=== PATIENT | female | born 1940 | race African-American/Black ===

== ENCOUNTER → 2016-05-26 | Day surgery (SDC) | payer MEDICARE, MEDICAID ==
--- NOTE | 2016-05-21 09:39 | Diagnostic Imaging Report ---
Indication: Cough Comparison: None 2 views of the chest obtained. Lungs are clear. Cardiomegaly is present. Aorta is mildly enlarged. Osteophytes involving endplates within the thoracic spine at multiple levels demonstrated. Impression: No acute disease
--- NOTE | 2016-05-24 10:34 | Opthalmology H&P ---
Ophthalmology H&P H&P Chief Complaint: decreased vision in right eye HPI Vision Affects Ability to: read, focus/use eyes together, manage personal affairs HPI Narrative blurry vision Exam Visual Acuity: OD: CF OS: 20/125 Tension: OD: 18 OS: 20 Eye Exam: normal OU: anterior chambers, corneas, external exam, fundus exam, levator function, marginal reflex distance, palpebral fissure-width, findings: lens - OD: ns OS: ns Assessment/Plan Diagnosis: (1) Cataract Treatment Plan: cataract extraction w/ lens implant Goals of Treatment: improvement of vision, enhance quality of life Attestation Attestation The risks and benefits of the surgery as well as alternative procedures were explained to the patient in detail. RADHA STOREY May 24, 2016 10:34
--- NOTE | 2016-05-24 15:23 | Pre-Procedure Note/Attestation ---
Pre-Procedure Note/Attestation Complete Prior to Procedure Planned Procedure: right Procedure Narrative: PHACO WITH IOL Indications for Procedure Pre-Operative Diagnosis: CATARACT Attestation I attest that I discussed the nature of the procedure; its benefits; risks and complications; and alternatives (and the risks and benefits of such alternatives ), prior to the procedure, with the patient (or the patient's legal insurance healthcare representative). I attest that, if there was a reasonable possibility of needing a blood transfusion, the patient (or the patient's legal insurance healthcare representative) was given the [facility] of Health Services standardized written summary, pursuant to the Derian [place] Blood Safety Act ([place] Health and Safety Code # 1645, as amended). I attest that I re-evaluated the patient just prior to the surgery and that there has been no change in the patient's H&P, except as documented below: RADHA STOREY May 24, 2016 15:23
[~2016-05-26] VITALS: Ht 157.5 cm; Wt 70.8 kg
[2016-05-26] VITALS (9 sets, daily range): BP systolic 128–137; BP diastolic 60–73
[~2016-05-26] MED LIST: ALBUTEROL SULF8.5 GM INH; AMLODIPINE BESY10 MG ORAL; Akten 3.5% 1ml Btl RIGHT EYE ONE; BSS 500ml btl ONE; GLIPIZIDE5 MG ORAL; HYDROCHLOROTHIA25 MG ORAL; LOSARTAN POTASS50 MG ORAL; LR 1000ml 1,000 ML IVLG SCH; LR 1000ml ONE; Lidocaine 1% MPF 10mg/ml 5ml ONE; MAPAP500 M2 PO; Maxitrol Opth Oint 3.5gm ONE; NS Irrig 1000ml ONE; PANTOPRAZOLE SO40 MG ORAL; Pred Forte 1% Opth Susp 1ml ONE; Propofol 10mg/ml 20ml IV ONE; Sodium Hyaluronate 14 mg/ml 0.85ml ONE; Sterile Water Irrig 1000ml IRRIG ONE; Tetracaine 0.5% Opth Soln ONE; Tobramycin Op Soln 0.3% ONE; Tobramycin Op Soln 0.3% RIGHT EYE SCH; acetaZOLAMIDE 500mg Inj ONE
[2016-05-26] MEDS: Diclofenac Sod 0.1% Op Soln RIGHT EYE SCH ×3 (07:36→07:55)
[2016-05-26] MEDS: Phenylephrine 10% Opth Soln 5ml RIGHT EYE SCH ×3 (07:36→07:55)
[2016-05-26] MEDS: Cyclopentolate 1% Opth Sol RIGHT EYE SCH ×3 (07:37→07:56)
[2016-05-26] MEDS: Tropicamide 1% Opth Soln RIGHT EYE SCH ×3 (07:37→07:56)
--- NOTE | 2016-05-26 07:45 | Anethesia Preoperative Eval ---
Anesthesia Pre-op PMH/ROS General Date of Evaluation: May 26, 2016 Anesthesiologist: Ajay ASA Score: ASA 3 Mallampati Score Class I : Soft palate, uvula, fauces, pillars visible Class II: Soft palate, uvula, fauces visible Class III: Soft palate, base of uvula visible Class IV: Only hard plate visible Mallampati Classification: Class II Surgeon: Heather Diagnosis: Cataract OD Surgical Procedure: Cataract extract with IOL OD Allergies: Coded Allergies: No Known Allergies (Unverified , 12/08/15) Medications: see eMAR Past Medical History Cardiovascular: Reports: HTN Pulmonary: Reports: COPD Gastrointestinal/Genitourinary: Reports: GERD Endocrine: Reports: DM HEENT: Reports: cataract (R) Anesthesia Pre-op Phys. Exam Physician Exam Neurologic: CN 2-12 intact Cardiovascular: RRR Respiratory: CTA Airway Exam Mallampati Score: Class II ANA MARIA POON M.D. May 26, 2016 07:45
--- NOTE | 2016-05-26 07:48 | 48 Hour Post Anesthesia Eval ---
Post Anesthesia Evaluation Procedure: Cataract extract w IOL OD Date of Evaluation: May 26, 2016 Time of Evaluation: 10:10 Blood Pressure Systolic: 140 0: 72 Pulse Rate: 70 Respiratory Rate: 14 Temperature (Fahrenheit): 97.7 O2 Sat by Pulse Oximetry: 99 Airway: patent Nausea: No Vomiting: No Hydration Status: adequate Mental Status/LOC: patient returned to baseline Post-Anesthesia Complications: none Follow-up care needed: N/A ANA MARIA POON M.D. May 26, 2016 07:48
--- NOTE | 2016-05-26 07:48 | Immediate Post-Op Evaluation ---
Immediate Post-Op Evalulation Immediate Post-Op Evalulation Procedure: Cataract extract w IOL OD Date of Evaluation: May 26, 2016 Time of Evaluation: 09:38 IV Fluids: 250 ml Blood Products: 0 Estimated Blood Loss: 0 Urinary Output: nm Blood Pressure Systolic: 131 Blood Pressure Diastolic: 67 Pulse Rate: 72 Respiratory Rate: 16 O2 Sat by Pulse Oximetry: 99 Temperature (Fahrenheit): 97.7 Pain Score (1-10): 0 Nausea: No Vomiting: No Patient Status: reacts, patent, none Drug: none ANA MARIA POON M.D. May 26, 2016 07:48
--- NOTE | 2016-05-27 08:51 | Brief Operative Note ---
Immediate Post Operative Note Operative Note Chief Complaint: blurry vision Pre-op Diagnosis: CATARACT Procedure: phaco with IOL Post-op Diagnosis: Pseudophakia Post-op Diagnosis: same as pre-op Findings: consistent w/pre-op dx studies Surgeon: Heather Anesthesiologist: Ajay Anesthesia: MAC Specimen: none Complications: none Condition: stable Estimated Blood Loss: none Drains: none Implant(s) used?: Yes RADHA STOREY May 27, 2016 08:51
--- NOTE | 2016-05-29 11:19 | Operative Note - PDOC ---
Operative Note Operative Note Date of Operation/Procedure: May 26, 2016 Chief Complaint: blurry vision Pre-op Diagnosis: CATARACT Procedure: phaco with IOL Post-op Diagnosis: Pseudophakia Post-op Diagnosis: same as pre-op Operative Findings: consistent w/pre-op dx studies Surgeon: Heather Anesthesiologist: Ajay Anesthesia: MAC Specimen: none Complications: none Condition: stable Estimated Blood Loss: none Drains: none Implant(s) used?: Yes Indications for Procedure cataract Description of Procedure This patient has been complaining visually significant cataract in the affected eye with the best corrected visual acuity under moderate glare conditions worse. The patient complains of difficulties with glare in performing activities of daily living and wants to manage personal affairs with comfort and accuracy and see well enough to move with safety at home and outdoors. ~~~ The risks, benefits and alternatives of the procedure were discussed with the patient in the office prior to scheduling surgery. All questions from the patient were answered after the surgical procedure was explained in detail. The risks of the procedure as explained to the patient include, but are not limited to, pain, infection, bleeding, loss of vision, retinal detachment, need for further surgery, loss of lens nucleus, double vision, etc. Alternative procedures were discussed which include, to do nothing or seek a second opinion. Informed consent for this procedure was obtained from the patient. The patient was referred to a primary care physician for a cardiopulmonary clearance prior to surgery, after proper evaluation was done patient was properly scheduled for outpatient surgery. The patient was brought to the operating room where the anesthesiologist established I.V. lines and cardiac monitoring leads. Mild intravenous sedation was administered.~~ The patient was then prepared with a 5% solution of povidone -iodine to the conjunctival fornix and lashes, and a 10% solution of povidone- iodine to the lids and periorbital skin. The patient was then draped in the usual sterile fashion. A lid speculum was then placed in the operative eye. A keratome blade was then used to create a biplanar incision into the anterior chamber. Viscoelastics was then instilled into the anterior chamber. A capsulorrhexis was then fashioned with an utrata forcepsfollowed by hydrodissection and hydro delineation the lens nucleus. Paracentesis incision was made at 3 o'clock with sharp blade. The phacoemulsification unit, after being properly adjusted~ and tested, was then used to emulsify the nucleus. Residual cortical material was aspirated with the irrigation and aspiration unit. Healon was then instilled into the anterior chamber. The corneal wound was then enlarged to the size of the optic with the catherine keratome blade. The intraocular lens was then inspected for right~ power and size~ and thought to be satisfactory. Then the lens was gently placed in the capsular bag. Positioning within the capsular bag was confirmed by direct visualization. Optic centration was accomplished with a Sinskey hook. Viscoelastics~ was removed from the anterior chamber using the irrigation and aspiration unit. The corneal wound was then tested for leaks and none were found. The lid speculum were then removed. Sponge and needle counts were correct. An eye patch and shield were placed over the operative eye. The patient was taken to the recovery room in stable condition. There were no complications. The patient tolerated the procedure well. The patient was then transferred to the ambulatory surgery unit in stable and satisfactory condition , was given detailed written instructions and asked to follow up~ in the office the next day. ~ ~ Dictated & Transcribed: Mariana Johana BAKER JAMES May 29, 2016 11:19
== END | disposition home or self-care (01) ==
LOC: SUR 06:34
DX: H26.9 Unspecified cataract (principal); E11.9 Type 2 diabetes mellitus without complications; I10 Essential (primary) hypertension; J44.9 Chronic obstructive pulmonary disease, unspecified; J45.909 Unspecified asthma, uncomplicated; E78.2 Mixed hyperlipidemia; K21.9 Gastro-esophageal reflux disease without esophagitis; E66.9 Obesity, unspecified; I35.0 Nonrheumatic aortic (valve) stenosis; I34.9 Nonrheumatic mitral valve disorder, unspecified; I44.7 Left bundle-branch block, unspecified
CPT/HCPCS: 66984; 71020; 82962; J1120; J2704; J7120; V2632; 94003; 94150

== ENCOUNTER 2017-07-16 05:43 | Day surgery (SDC) | payer MEDICARE, OTHER ==
--- NOTE | 2017-07-12 14:13 | Pre-Procedure Note/Attestation ---
Pre-Procedure Note/Attestation Complete Prior to Procedure Planned Procedure: left Procedure Narrative: phaco with IOL Indications for Procedure Pre-Operative Diagnosis: cataract Attestation I attest that I discussed the nature of the procedure; its benefits; risks and complications; and alternatives (and the risks and benefits of such alternatives ), prior to the procedure, with the patient (or the patient's legal communications representative). I attest that, if there was a reasonable possibility of needing a blood transfusion, the patient (or the patient's legal communications representative) was given the [facility] Services standardized written summary, pursuant to the Derian [place] Blood Safety Act ([place] Health and Safety Code # 1645, as amended). I attest that I re-evaluated the patient just prior to the surgery and that there has been no change in the patient's H&P, except as documented below: RADHA STOREY Jul 12, 2017 14:13
--- NOTE | 2017-07-12 14:14 | Opthalmology H&P ---
Ophthalmology H&P H&P Chief Complaint: decreased vision in left eye HPI Vision Affects Ability to: read, focus/use eyes together, manage personal affairs HPI Narrative blurry vision Exam Visual Acuity: OD: 20/30 OS: 20/80 Tension: OD: 15 OS; 16 Eye Exam: normal OU: external exam, palpebral fissure-width, marginal reflex distance, levator function, corneas, anterior chambers, findings: lens - OD: IOL OS: psc, fundus exam - npdr me OU Assessment/Plan Diagnosis: (1) Cortical age-related cataract of left eye Treatment Plan: cataract extraction w/ lens implant Goals of Treatment: improvement of vision, enhance quality of life Attestation Attestation The risks and benefits of the surgery as well as alternative procedures were explained to the patient in detail. RADHA STOREY Jul 12, 2017 14:14
[~2017-07-16] VITALS: Ht 157.5 cm; Wt 64.4 kg
[2017-07-16] VITALS (7 sets, daily range): BP systolic 111–152; BP diastolic 56–77
[~2017-07-16 05:43] MED LIST changes: -Akten 3.5% 1ml Btl RIGHT EYE ONE; -BSS 500ml btl ONE; -LR 1000ml 1,000 ML IVLG SCH; -LR 1000ml ONE; -Lidocaine 1% MPF 10mg/ml 5ml ONE; -Maxitrol Opth Oint 3.5gm ONE; -NS Irrig 1000ml ONE; -Pred Forte 1% Opth Susp 1ml ONE; -Propofol 10mg/ml 20ml IV ONE; -Sodium Hyaluronate 14 mg/ml 0.85ml ONE; -Sterile Water Irrig 1000ml IRRIG ONE; -Tetracaine 0.5% Opth Soln ONE; -Tobramycin Op Soln 0.3% ONE; -Tobramycin Op Soln 0.3% RIGHT EYE SCH; -acetaZOLAMIDE 500mg Inj ONE
[2017-07-16] MEDS ORDERED: NS Irrig 1000ml ONE (05:44)
[2017-07-16] MEDS ORDERED: LR 1000ml ONE (05:44)
[2017-07-16] MEDS ORDERED: Sterile Water Irrig 1000ml IRRIG ONE (05:44)
[2017-07-16] MEDS ORDERED: Midazolam 2mg/2ml Inj ONE (05:44)
[2017-07-16] MEDS ORDERED: Proparacaine 0.5% Opth Soln 15ml LEFT EYE ONE (07:00)
[2017-07-16] MEDS ORDERED: Tetracaine 0.5% Opth 4ml Soln LEFT EYE ONE (07:00)
[2017-07-16] MEDS ORDERED: Akten 3.5% 1ml Btl LEFT EYE ONE (07:00)
[2017-07-16] MEDS: Cyclopentolate 1% Opth Sol 2ml LEFT EYE SCH ×3 (07:01→07:20)
[2017-07-16] MEDS: Tobramycin Op Soln 0.3% 5ml LEFT EYE SCH ×3 (07:03→07:20)
[2017-07-16] MEDS: Tropicamide 1% Opth 15ml Soln LEFT EYE SCH ×3 (07:03→07:20)
[2017-07-16] MEDS: Phenylephrine 10% Opth Soln 5ml LEFT EYE SCH ×3 (07:03→07:20)
[2017-07-16] MEDS: Ketorolac Tromethamine Opth 5ml Soln LEFT EYE SCH ×3 (07:03→07:20)
--- NOTE | 2017-07-16 08:00 | Anethesia Preoperative Eval ---
Anesthesia Pre-op PMH/ROS General Date of Evaluation: Jul 16, 2017 Time of Evaluation: 07:10 Anesthesiologist: Solis ASA Score: ASA 3 Mallampati Score Class I : Soft palate, uvula, fauces, pillars visible Class II: Soft palate, uvula, fauces visible Class III: Soft palate, base of uvula visible Class IV: Only hard plate visible Mallampati Classification: Class II Surgeon: Heather Diagnosis: Cataract left eye Surgical Procedure: Extraction of cataract with IOL implant Family History: no anesthesia problems Allergies: Coded Allergies: No Known Allergies (Unverified , 07/16/17) Medications: see eMAR Past Medical History Cardiovascular: Reports: HTN, CAD - s/p coronary stent, Denies: VT, valve dz, arrhythmia, other Pulmonary: Reports: asthma, Denies: COPD, ANJEL, other Gastrointestinal/Genitourinary: Denies: GERD, CRI, ESRD, other Neurologic/Psychiatric: Denies: dementia, CVA, depression/anxiety, TIA, other Endocrine: Reports: DM, Denies: hypothyroidism, steroids, other HEENT: Reports: cataract (L), cataract (R) Hematology/Immune: Denies: anemia, DVT, bleeding disorder, other Musculoskeletal/Integumentary: Denies: OA, RA, DJD, DDD, edema, other PMH Narrative: CAD (s/p coronary stent), HTN, DM, asthma PSxH Narrative: C/S, coronary stent, cataract Anesthesia Pre-op Phys. Exam Physician Exam Last Vital Signs Date Time Temp Pulse Resp B/P (MAP) Pulse Ox O2 Delivery O2 Flow Rate FiO2 07/16/17 07:07 97.8 61 16 152/77 100 Room Air 97.8 Constitutional: NAD Neurologic: CN 2-12 intact Cardiovascular: RRR Respiratory: CTA Gastrointestinal: S/NT/ND Airway Exam Mallampati Score: Class II MO: full ROM: full Dentures: upper, lower Anesthesia Pre-op A/P Studies Pre-op Studies: EKG - SR,LBBB Risk Assessment & Plan Assessment: Class 3 patient for cataract extraction Plan: MAC Status Change Before Surgery: No Pre-Antibiotics Drug: None JUDY GORDON M.D. Jul 16, 2017 08:00
[2017-07-16] MEDS ORDERED: Pilocarpine 2% Opth 15ml Soln ONE (08:57)
--- NOTE | 2017-07-16 09:29 | Immediate Post-Op Evaluation ---
Immediate Post-Op Evalulation Immediate Post-Op Evalulation Procedure: Extraction of cataract with IOL left eye Date of Evaluation: Jul 16, 2017 Time of Evaluation: 09:25 IV Fluids: 300 Blood Pressure Systolic: 125 Blood Pressure Diastolic: 67 Pulse Rate: 73 Respiratory Rate: 16 O2 Sat by Pulse Oximetry: 100 Temperature (Fahrenheit): 97.6 Pain Score (1-10): 0 Nausea: No Vomiting: No Complications No complication Patient Status: awake, patent, none Hydration Status: adequate Drug: None JUDY GORDON M.D. Jul 16, 2017 09:29
--- NOTE | 2017-07-16 09:31 | 48 Hour Post Anesthesia Eval ---
Post Anesthesia Evaluation Procedure: Extraction of cataract with IOL left eye Date of Evaluation: Jul 16, 2017 Time of Evaluation: 10:00 Blood Pressure Systolic: 138 0: 66 Pulse Rate: 82 Respiratory Rate: 18 O2 Sat by Pulse Oximetry: 99 Airway: patent Nausea: No Vomiting: No Pain Intensity: 0 Hydration Status: adequate Cardiopulmonary Status: Stable Mental Status/LOC: patient returned to baseline Follow-up Care/Observations: As per surgery Post-Anesthesia Complications: No anesthetic complication Follow-up care needed: N/A JUDY GORDON M.D. Jul 16, 2017 09:30
--- NOTE | 2017-07-16 13:49 | Brief Operative Note ---
Immediate Post Operative Note Operative Note Chief Complaint: blurry vision Pre-op Diagnosis: cataract, OS Procedure: phaco with IOL OS Post-op Diagnosis: pseudophakia Post-op Diagnosis: same as pre-op Findings: consistent w/pre-op dx studies Surgeon: Heather Anesthesiologist: Solis Anesthesia: MAC Specimen: none Complications: none Fluids: LR Estimated Blood Loss: none Drains: none Implant(s) used?: Yes RADHA STOREY Jul 16, 2017 13:49
--- NOTE | 2017-07-16 13:51 | Operative Note - PDOC ---
Operative Note Operative Note Date of Operation/Procedure: Jul 16, 2017 Chief Complaint: blurry vision Pre-op Diagnosis: cataract, OS Procedure: phaco with IOL OS Post-op Diagnosis: pseudophakia Post-op Diagnosis: same as pre-op Operative Findings: consistent w/pre-op dx studies Surgeon: Heather Anesthesiologist: Solis Anesthesia: MAC Specimen: none Complications: none Fluids: LR Estimated Blood Loss: none Drains: none Implant(s) used?: Yes Indications for Procedure cataract Description of Procedure This patient has been complaining visually significant cataract in the affected eye with the best corrected visual acuity under moderate glare conditions worse. The patient complains of difficulties with glare in performing activities of daily living and wants to manage personal affairs with comfort and accuracy and see well enough to move with safety at home and outdoors. The risks, benefits and alternatives of the procedure were discussed with the patient in the office prior to scheduling surgery. All questions from the patient were answered after the surgical procedure was explained in detail. The risks of the procedure as explained to the patient include, but are not limited to, pain, infection, bleeding, loss of vision, retinal detachment, need for further surgery, loss of lens nucleus, double vision, etc. Alternative procedures were discussed which include, to do nothing or seek a second opinion. Informed consent for this procedure was obtained from the patient. The patient was referred to a primary care physician for a cardiopulmonary clearance prior to surgery, after proper evaluation was done patient was properly scheduled for outpatient surgery. The patient was brought to the operating room where the anesthesiologist established I.V. lines and cardiac monitoring leads. Mild intravenous sedation was administered. The patient was then prepared with a 5% solution of povidone- iodine to the conjunctival fornix and lashes, and a 10% solution of povidone- iodine to the lids and periorbital skin. The patient was then draped in the usual sterile fashion. A lid speculum was then placed in the operative eye. A keratome blade was then used to create a biplanar incision into the anterior chamber. Viscoelastics was then instilled into the anterior chamber. A capsulorrhexis was then fashioned with an utrata forceps then hydrodissection and hydro delineateion of the lens nucleus. Paracentesis incision was made at 3 o'clock with sharp blade. The phacoemulsification unit, after being properly adjusted and tested, was then used to emulsify the nucleus. Residual cortical material was aspirated with the irrigation and aspiration unit. Healon was then instilled into the anterior chamber. The corneal wound was then enlarged to the size of the optic with the catherine keratome blade. The intraocular lens was then inspected for right power and size and thought to be satisfactory. Then the lens was gently placed in the capsular bag. Positioning within the capsular bag was confirmed by direct visualization. Optic centration was accomplished with a Sinskey hook. Viscoelastics was removed from the anterior chamber using the irrigation and aspiration unit. The corneal wound was then tested for leaks and none were found. The lid speculum were then removed. Sponge and needle counts were correct. An eye patch and shield were placed over the operative eye. The patient was taken to the recovery room in stable condition. There were no complications. The patient tolerated the procedure well. The patient was then transferred to the ambulatory surgery unit in stable and satisfactory condition , was given detailed written instructions and asked to follow up in the office the next day. RADHA STOREY M.D. RADHA STOREY Jul 16, 2017 13:51
[2017-07-16] MEDS ORDERED: BSS 500ml btl ONE (15:12)
[2017-07-16] MEDS ORDERED: Vancomycin 1gm inj IVPB ONE (15:12)
[2017-07-16] MEDS ORDERED: EPINEPHrine 1mg/1ml Amp ONE (15:12)
[2017-07-16] MEDS ORDERED: BSS 15ml BTL ONE (15:13)
[2017-07-16] MEDS ORDERED: Sodium Hyaluronate 14 mg/ml 0.85ml ONE (15:13)
[2017-07-16] MEDS ORDERED: Povidone-Iodine 5% opth solution ONE (15:13)
--- NOTE | 2017-07-18 20:14 | Cardiology Report ---
APPROVED REPORT EKG Measurement Heart [id number] Normal sinus rhythm with sinus arrhythmia Left axis deviation Left bundle branch block Abnormal ECG
--- NOTE | 2017-07-24 01:01 | Pre-op HX & Phy Repo 2 SIG ---
DATE OF ADMISSION: 07/16/2017 PRESURGICAL INTERNAL MEDICINE HISTORY AND PHYSICAL DATE OF EVALUATION: 07/16/2017 REASON FOR EVALUATION: This 77-year-old female going for elective surgery of the left eye. I was asked by Dr. Danny Romero to see this lady in presurgical evaluation by Internal Medicine. The patient has a nuclear cataract in left eye. Please see full History and Physical by sustainability executive director, Dr. Danny Romero. The patient was evaluated at [place] outpatient surgery department. The patient is alert, well-developed and well-nourished female. PAST MEDICAL HISTORY AND REVIEW OF SYSTEMS: Remarkable for hypertension, type 2 diabetes, bronchial asthma, GERD or peptic ulcer disease. No history of stroke. Denies history of anemia. No thyroid problem. Denies history of renal failure. No hepatitis. PAST SURGICAL HISTORY: Cataract, right eye in the past. ALLERGIES: Not known. MEDICATIONS: Include amlodipine, losartan, glipizide, Tylenol, hydrochlorothiazide, and albuterol inhaler. HABITS: Denies history of smoke, alcohol, or street drug use. FAMILY HISTORY: Father from complication of cancer of the throat and mother's history unknown. PHYSICAL EXAMINATION: GENERAL: Alert, well-developed, well-nourished female in her 70s, no acute distress. VITAL SIGNS: Blood pressure 162/77, temperature 97.8, pulse 61, respirations 16, and O2 saturation 100% on room air. The patient's BMI is 26.0 kg/m2. SKIN: Warm, clear. No rashes. No open wound. LYMPH NODES: Not enlarged. HEENT: Head, normocephalic and atraumatic. Ears, clear, no discharge. Eyes, includes cataract to the left eye. Full description per Dr. Danny Romero. Mouth, clear and moist. No dentures. NECK: No jugular vein distention. Carotid artery +2. Trachea midline. No palpable mass. No thyroid mass. No lymph node enlargement. CHEST: No deformity or asymmetry. LUNGS: Clear to auscultation and percussion. No rales or rhonchi. No wheezing. HEART: Sinus rhythm. No ectopy. No murmur. No S3 or S4. ABDOMEN: Soft, obese. No palpable mass. No rebound. EXTREMITIES: No edema. No varicose veins. No deformity. No calf tenderness. GENITOURINARY: Denies dysuria. CVA nontender. CENTRAL NERVOUS SYSTEM: No tremor no nystagmus. Cerebral nerves II through XII within normal limits. LABORATORY AND DIAGNOSTIC DATA: Electrocardiogram, normal sinus rhythm at 61 per minute, left axis deviation, right bundle-branch block. Her blood sugar 179 mg/dL. The patient's last p.o. pureed or meal intake 6 p.m. yesterday. IMPRESSION: 1. Cataract, left eye. 2. Hypertension. 3. History of bronchial asthma, controlled. 4. Gastroesophageal reflux disease. 5. Diabetes mellitus, type 2. 6. Left axis deviation and right bundle-branch block on EKG. PLAN: Cataract extraction, left eye with intraocular lens implant per Dr. Danny Romero. CONCLUSION: The patient is a 77-year-old female with a history of diabetes mellitus type 2 and bronchial asthma. She did not eat or drink from last night. The patient's blood pressure and blood sugar fairly controlled. The patient's condition optimized for surgery. Thank you very much, Dr. Romero, for privilege to participate in presurgical care of this interesting patient. Ben Pederson M.D. DR: LIZETT JOB#: [id number] CC:
== END 2017-07-16 10:50 | disposition home or self-care (01) ==
LOC: SUR 05:43
DX: H25.012 Cortical age-related cataract, left eye (principal); I10 Essential (primary) hypertension; Z87.11 Personal history of peptic ulcer disease; E11.9 Type 2 diabetes mellitus without complications; I11.9 Hypertensive heart disease without heart failure; Z95.5 Presence of coronary angioplasty implant and graft; I44.7 Left bundle-branch block, unspecified
CPT/HCPCS: 66984; 82962; 93005; J0171; J2250; J3370; J7120; V2632; 94003; 94150